=== PATIENT | male | born 1950 | race Caucasian/White ===

== ENCOUNTER 2025-07-24 07:59 | Inpatient (IN) | payer MEDICARE, OTHER ==
[~2025-07-24] VITALS: Ht 170.2 cm; Wt 83.0 kg
[2025-07-24] MEDS ORDERED: FENTANYL PF 250MCG/5ML AMPUL ONE (10:01)
[2025-07-24] MEDS ORDERED: ROCURONIUM BROMIDE 50 MG/5 ML ONE (10:01)
[2025-07-24] MEDS ORDERED: LIDOCAINE 2%-EPI 1:100,000 30 ML VIAL ONE (10:03)
[2025-07-24] MEDS ORDERED: VANCOMYCIN 1 GM VIAL ONE (10:03)
[2025-07-24] MEDS ORDERED: dexaMETHasone SOD PHOSPHATE 1 ML ONE (10:03)
[2025-07-24] MEDS ORDERED: ACETAMINOPHEN 325 MG TABLET PO PRN (13:30)
[2025-07-24] MEDS ORDERED: IV NS 0.9% 1,000 ML IV PRN (13:30)
[2025-07-24] MEDS ORDERED: ONDANSETRON HCL/PF 4 MG/2 ML VIAL IVP PRN ×2 (13:30→14:00)
[2025-07-24] MEDS ORDERED: MAGNESIUM HYDROXIDE 30 ML UDC PO PRN (14:00)
[2025-07-24] MEDS ORDERED: MAG HYDROX/AL HYDROX/SIMETH 30 ML UDC PO PRN (14:00)
[2025-07-24] MEDS ORDERED: Z GUARD REMEDY 4 OZ OINT TP PRN (14:00)
[2025-07-24] MEDS: HYDROMORPHONE 1 MG/1 ML DISP.SYRIN IV PRN (14:01)
[2025-07-24] MEDS: IV NS 0.9% 1,000 ML IV PRN (16:14)
[2025-07-24] MEDS: ACETAMINOPHEN 325 MG TABLET PO PRN (16:29)
[2025-07-24] MEDS ORDERED: VALS80TA31 PO (17:36)
[2025-07-24] MEDS ORDERED: ASPI1TAB2 PO (17:36)
[2025-07-24] MEDS ORDERED: TAMS-12 PO (17:36)
[2025-07-24] MEDS ORDERED: AMLO-213 PO (17:36)
[2025-07-24] MEDS ORDERED: ATOR40TA PO (17:36)
[2025-07-24] MEDS ORDERED: ASPIRIN/ACETAMINOPHEN/CAFFEINE 1 EACH TABLET PO PRN (18:30)
[2025-07-24 20:00] VITALS: BP 127/74; TEMP 97.9; O2SAT 95
[2025-07-24] MEDS: ATORVASTATIN 40 MG TABLET PO SCH (21:40)
[2025-07-24] MEDS: VANCOMYCIN 1 GM in IV D5W 250ml IV SCH (22:05)
[2025-07-25] MEDS: TRAMADOL HCL 50 MG TABLET PO PRN (02:38)
[2025-07-25 06:35] LABS: PLATELET COUNT (AUTO) 179 K/uL (150-450); RED BLOOD CELL COUNT(AUTO) 4.00 MIL/uL (4.5-6.0); RED CELL DISTRIBUTION WIDTH 13.8 % (11.5-15.0); WHITE BLOOD COUNT (AUTO) 10.9 K/uL (4.3-11.0)
[2025-07-25 06:52] LABS: CALCIUM, SERUM 9.0 mg/dL (8.5-10.1); CREATININE 1.5 mg/dL (0.6-1.3); PHOSPHORUS 2.6 mg/dL (2.5-4.9); SODIUM SERUM 140.0 mmol/L (136-145); UREA NITROGEN, BLOOD 22.0 mg/dL (7-18)
[2025-07-25 07:00] VITALS: BP 116/72; TEMP 98.4; O2SAT 95
[2025-07-25] MEDS ORDERED: ASPIRIN/ACETAMINOPHEN/CAFFEINE 1 EACH TABLET PO PRN (07:00)
[2025-07-25 09:57] VITALS: BP 116/72
[2025-07-25] MEDS: VALSARTAN 80 MG TABLET PO SCH (09:57)
[2025-07-25] MEDS: TAMSULOSIN 0.4 MG CAP.SR.24H PO SCH (09:57)
[2025-07-25] MEDS: AMLODIPINE BESYLATE 10 MG TABLET PO SCH (09:57)
== END 2025-07-25 12:10 | disposition home or self-care (01) | DRG 141 ==
LOC: DS 07:59 → MED 13:12
PROVIDERS: ADMIT Nurse Practitioner Acute Care; ATTEND Nurse Practitioner Acute Care
PROC: 0NSV04Z Reposition Left Mandible with Internal Fixation Device, Open Approach (ICD-10-PCS; 2025-07-24)
PROC: 0NUV07Z Supplement Left Mandible with Autologous Tissue Substitute, Open Approach (ICD-10-PCS; 2025-07-24)
PROC: 0NUR07Z Supplement Maxilla with Autologous Tissue Substitute, Open Approach (ICD-10-PCS; 2025-07-24)
PROC: 0N5R0ZZ Destruction of Maxilla, Open Approach (ICD-10-PCS; 2025-07-24)
PROC: 0N5V0ZZ Destruction of Left Mandible, Open Approach (ICD-10-PCS; 2025-07-24)
PROC: 09UR07Z Supplement Left Maxillary Sinus with Autologous Tissue Substitute, Open Approach (ICD-10-PCS; 2025-07-24)
PROC: 0NSR04Z Reposition Maxilla with Internal Fixation Device, Open Approach (ICD-10-PCS; principal; 2025-07-24 10:15)
DX: S02.40DA Maxillary fracture, left side, initial encounter for closed fracture (principal); M87.9 Osteonecrosis, unspecified; N17.9 Acute kidney failure, unspecified; S02.40CA Maxillary fracture, right side, initial encounter for closed fracture; S02.609A Fracture of mandible, unspecified, initial encounter for closed fracture; I12.9 Hypertensive chronic kidney disease with stage 1 through stage 4 chronic kidney disease, or unspecified chronic kidney disease; N18.9 Chronic kidney disease, unspecified; D16.4 Benign neoplasm of bones of skull and face; D16.5 Benign neoplasm of lower jaw bone; M27.2 Inflammatory conditions of jaws; X58.XXXA Exposure to other specified factors, initial encounter; Y92.9 Unspecified place or not applicable; Z82.49 Family history of ischemic heart disease and other diseases of the circulatory system; J32.9 Chronic sinusitis, unspecified
CPT/HCPCS: 36415; 71045-TC; 80048-TC; 83735-TC; 84100-TC; 85025-TC; 88305-TC; 88311-TC; A4217; A4223; A4338; C1713; G0378; J0360; J0461; J0690; J1100; J1171; J2704; J3010; J3373; J3490; J7030; J7060